=== PATIENT | male | born 1975 | race Caucasian/White ===

== ENCOUNTER 2017-09-11 11:32 | Emergency (ER) | payer OTHER ==
[~2017-09-11] VITALS: Ht 177.8 cm; Wt 131.7 kg
[~2017-09-11 11:32] MED LIST: ALBUAER19 INH; IBUP-1050 PO; IMT100 PO; PRED20TA2 PO
[2017-09-11 11:34] VITALS: TEMP 36.6; Ht 177.8 cm; Wt 131.7 kg
[2017-09-11] MEDS ORDERED: HYDROCODONE/ACETAMOPHEN 5/325MG TAB PO STA (11:45)
--- NOTE | 2017-09-11 12:18 | DIAGNOSTIC IMAGING REPORT ---
L ANKLE MIN 3 VIEWS ROUTINE CLINICAL HISTORY: Injured L ankle yesterday with inversion COMPARISON: None FINDINGS: Alignment of the left ankle is anatomic. There is no acute fracture. There is spurring within the left midfoot which is suboptimally assessed on this exam. Note is made of a 1.4 cm bone island within the metadiaphysis of the left tibia. There is no acute fracture. There may be an os trigonum. There is mild lateral ankle soft tissue swelling. Talar dome is intact. IMPRESSION: No acute fracture or dislocation of the left ankle. Electronically signed by: Hugh Eric M.D. 09/11/2017 12:16 PM Dictated Date/Time: 09/11/2017 12:15 PM
[2017-09-11] MEDS ORDERED: HYDR-5688 PO (12:38)
--- NOTE | 2017-09-11 12:39 | EMERGENCY ROOM VISIT NOTE ---
History First contact with patient: 11:39 Chief Complaint: ANKLE PAIN Stated Complaint: TWISTED L ANKLE, WORK RELATED History of Present Illness The patient is a 42 year old male who presents to the Emergency Room via private vehicle with complaints of "twisted left ankle, work-related ankle. The patient states that yesterday while at work, he was descending a ladder when his right foot became caught on the rung, causing him to place his left foot on the ground with inversion and then subsequent pain in the left ankle. He states that he has had pain since that time but is able to bear weight on the joint. He has a previous injury to this region. Review of Systems A complete 6-point Review of Systems was discussed with the patient, with pertinent positives and negatives listed in the History of Present Illness. All remaining Review of Systems questions can be considered negative unless otherwise specified. Past Medical/Surgical History Medical Problems: (1) Asthma Social History Smoking Status: Never Smoker Alcohol Use: occasionally Marital Status: Occupation Status: employed Current/Historical Medications Scheduled PRN Hydrocodone/Acetaminophen 5MG/325MG ([place] 5MG/325MG), 1-2 TABLET PO Q6 PRN for Pain Physical Exam Vital Signs Date Time Temp Pulse Resp B/P (MAP) Pulse Ox O2 Delivery O2 Flow Rate FiO2 09/11/17 12:48 90 20 157/107 96 09/11/17 11:34 36.6 90 18 153/95 98 Room Air Physical Exam VITAL SIGNS - Vital signs and nursing notes were reviewed. Stable. GENERAL - 42-year-old male appearing his stated age who is in no acute distress. Communicates well with provider and answers questions appropriately. EXTREMITIES - No clubbing or peripheral cyanosis. No pretibial edema present. + 5/5 strength noted in UE/LE bilaterally. L lateral malleoli tenderness to palpation. There is minimal edema and ecchymosis. Skin is intact. Decreased range of motion secondary to pain. There is no sutherland or foot tenderness. Medical Decision & Procedures ER Provider Diagnostic Interpretation: L ANKLE MIN 3 VIEWS ROUTINE CLINICAL HISTORY: Injured L ankle yesterday with inversion COMPARISON: None FINDINGS: Alignment of the left ankle is anatomic. There is no acute fracture. There is spurring within the left midfoot which is suboptimally assessed on this exam. Note is made of a 1.4 cm bone island within the metadiaphysis of the left tibia. There is no acute fracture. There may be an os trigonum. There is mild lateral ankle soft tissue swelling. Talar dome is intact. IMPRESSION: No acute fracture or dislocation of the left ankle. Electronically signed by: Hugh Eric M.D. 09/11/2017 12:16 PM Dictated Date/Time: 09/11/2017 12:15 PM Medications Administered Medications (Trade) Dose Ordered Sig/Rosy Route Start Time Stop Time Status Last Admin Dose Admin Acetaminophen/ Hydrocodone Bitart ([place] 5/325 Tab) 1 tab NOW STAT PO 09/11/17 11:45 09/11/17 11:46 DC 09/11/17 11:51 1 TAB Medical Decision Patient was seen and evaluated as above. He presents to us today with left lateral malleolus pain. This is status post inversion injury. This was work- related. X-ray was obtained. Ice packs were applied. Results as above. I suspect he likely is experiencing a sprain. He was informed upon the bony island of which I suspect is likely scar from a previous injury. He is to follow with your prove Workmen's Compensation individual. I will recommend he refrain from work until that time as he will need to be nonweightbearing. Crutches. A gel ankle splint was applied. He appears stable for outpatient management. He was provided a short course of pain medication. He was given [place]. No red flags in the [place] drug monitoring system. He was educated upon management, educated upon worrisome symptoms which to return, had questions answered prior to discharge, and was discharged home in good condition. In the evaluation and treatment of this patient, the following differential diagnoses were considered: Ankle Fracture, Ankle Sprain, Distal Fibula Fracture , Distal Tibia Fracture, Foot Fracture, [place] Fracture. Impression Primary Impression: Left ankle pain Departure Information Dispostion Home / Self-Care Condition GOOD Prescriptions Hydrocodone/Acetaminophen 5MG/325MG ([place] 5MG/325MG) Tab 1-2 TABLET PO Q6 Y for Pain, #15 TAB For Initial Treatment Prov: Adama Castle PA-C 09/11/17 Referrals Andrew Dahl M.D. (PCP) Josias Palacios D.O. Patient Instructions My [facility] Additional Instructions You have been treated in the Emergency Department for a left Ankle injury. You have received pain medicine in the emergency department which impairs your ability to operate a vehicle. It is illegal for you to drive after receiving these medicines. You have been prescribed NORCO to be used for pain control. This is a narcotic medication. You cannot drive or consume alcohol while on this medicine. This medicine should only be used for pain that cannot be controlled with over-the- counter pain medicines. For pain control, you can use the following [id number] medicines (if >12 yo): - Regular strength (325mg/tab) Tylenol (acetaminophen) 2 tabs every 4-6 hours as needed. Do not exceed 12 tablets in a 24 hour period. Avoid taking more than 3 grams (3000 mg) of Tylenol per day. This includes any other sources of acetaminophen you may take on a regular basis. NO NORCO WITH THE TYLENOL - Regular strength (200 mg/tab) Advil (ibuprofen) 1-2 tabs every 4-6 hours as needed. Do not exceed a dose of 3200 mg per day. If this is a recent injury (<24 hrs), ice can be applied to the area of pain for the first 3 days to help decrease pain and inflammation. You have been provided the number for an Orthopaedic Surgeon. You should call this number as soon as possible to establish a follow-up visit from today's Emergency Department visit. Keep the ankle brace/splint in place until cleared by Orthopedics. Use the crutches you have been provided to keep ALL weight off of the ankle until weight bearing is tolerable. Return to the Emergency Department if your current symptoms worsen despite treatment course outlined above, or if you develop any of the following symptoms : intractable pain despite aforementioned treatment course or new onset of numbness or tingling of the foot.
[2017-09-11 12:48] VITALS: BP 157/107; PULSE 90; O2SAT 96
== END 2017-09-11 12:45 | disposition home or self-care (01) ==
LOC: C.EDB 11:33 → C.EDD 12:45
DX: M25.572 Pain in left ankle and joints of left foot (principal); X50.1XXA Overexertion from prolonged static or awkward postures, initial encounter; Y93.89 Activity, other specified; Y99.0 Civilian activity done for income or pay; J45.909 Unspecified asthma, uncomplicated